=== PATIENT | female | born 1960 | race African-American/Black ===

== ENCOUNTER 2024-03-07 09:18 | Emergency (ER) | payer MEDICAID ==
[~2024-03-07] VITALS: Ht 157.5 cm; Wt 68.6 kg
[2024-03-07 09:22] VITALS: BP 147/81; PULSE 60; RESP 16; TEMP 98.3; O2SAT 98
[2024-03-07] MEDS ORDERED: ACET250T31 PO ×2 (09:28→10:49)
[2024-03-07] MEDS ORDERED: OXYC5 PO (09:28)
[2024-03-07] MEDS ORDERED: ERGO500054 PO ×2 (09:28→10:49)
[2024-03-07] MEDS: OxyCODONE HCL/ACETAMINOPHEN 5-325 MG TABLET PO ONE (10:38)
[2024-03-07] MEDS ORDERED: PERCT PO (10:49)
== END 2024-03-07 11:03 | disposition home or self-care (01) ==
LOC: EMS 09:35
DX: G89.29 Other chronic pain (principal); M54.50 Low back pain, unspecified; Z76.0 Encounter for issue of repeat prescription; Z79.899 Other long term (current) drug therapy
CPT/HCPCS: 99283

== ENCOUNTER 2024-03-10 11:57 | Emergency (ER) | payer MEDICAID, OTHER ==
[~2024-03-10] VITALS: Ht 157.5 cm; Wt 72.7 kg
[~2024-03-10 11:57] MED LIST: ACET250T31 PO; ERGO500054 PO; OXYC5 PO; PERCT PO
[2024-03-10 11:59] VITALS: TEMP 98
[2024-03-10] MEDS ORDERED: OXYC-38 PO (13:00)
[2024-03-10] MEDS: OxyCODONE HCL/ACETAMINOPHEN 5-325 MG TABLET PO ONE (13:07)
[2024-03-10 13:37] VITALS: BP 141/75; PULSE 80; RESP 18; O2SAT 99
== END 2024-03-10 14:07 | disposition home or self-care (01) ==
LOC: EMS 11:57
DX: G89.29 Other chronic pain (principal); M54.50 Low back pain, unspecified; M25.511 Pain in right shoulder; M25.561 Pain in right knee; M25.562 Pain in left knee
CPT/HCPCS: 99283

== ENCOUNTER 2024-03-17 12:38 | Emergency (ER) | payer MEDICAID ==
[~2024-03-17] VITALS: Ht 162.6 cm; Wt 68.2 kg
[~2024-03-17 12:38] MED LIST changes: -ACET250T31 PO; -ERGO500054 PO; +OXYC-38 PO; -OXYC5 PO; -PERCT PO
[2024-03-17 15:40] VITALS: BP 137/71; PULSE 73; RESP 18; TEMP 98; O2SAT 98
[2024-03-17] MEDS: OxyCODONE HCL 5 MG IR TABLET PO ONE (15:46)
== END 2024-03-17 16:52 | disposition home or self-care (01) ==
LOC: EMS 12:54
DX: G89.29 Other chronic pain (principal)
CPT/HCPCS: 99283

== ENCOUNTER 2024-03-19 08:41 | Emergency (ER) | payer MEDICAID, OTHER ==
[~2024-03-19] VITALS: Ht 165.1 cm; Wt 72.7 kg
[2024-03-19 08:47] VITALS: BP 134/79; PULSE 85; RESP 18; TEMP 97.8; O2SAT 99
[2024-03-19] MEDS ORDERED: ACET250T31 PO (08:51)
[2024-03-19] MEDS ORDERED: METH-659 PO (09:43)
[2024-03-19] MEDS ORDERED: HYDR-4072 PO (09:43)
[2024-03-19] MEDS ORDERED: LIDO700A15 TP (09:43)
[2024-03-19] MEDS ORDERED: IBUP-1554 PO (09:43)
[2024-03-19] MEDS: HYDROCODONE/ACETAMINOPHEN 5-325 MG TABLET PO ONE (09:56)
[2024-03-19] MEDS: IBUPROFEN 600 MG TABLET PO ONE (09:56)
== END 2024-03-19 11:10 | disposition home or self-care (01) ==
LOC: EMS 08:43
DX: G89.29 Other chronic pain (principal); M54.50 Low back pain, unspecified
CPT/HCPCS: 99283